=== PATIENT | male | born 1970 | race Caucasian/White ===

== ENCOUNTER 2020-01-20 10:42 | Emergency (ER) | payer BC, SELFPAY ==
[2020-01-20 10:48] VITALS: BP 160/95; PULSE 89; RESP 18; TEMP 36.9; O2SAT 95; BMI 30.9
--- NOTE | 2020-01-20 10:49 | ED_ITS ---
Entered by Louis Feldman, acting as scribe for Anay Lu MD HPI - Chest Pain General: Chief Complaint: Chest Pain Stated Complaint: Chest pain/SOB Time Seen by Provider: 01/20/20 10:51 History of Present Illness: HPI narrative: 49 yo male presents with chest pain and shortness of breath. Pt states that he went on a walk, he felt like he ran a mile and couldn't breath. Pt states that this chest pain and shortness of breath has been going off and on for a few weeks. Pt states that he was seen by his doctor in [place], had an EKG done and he is scheduled for a Pulmonary function test and an Echo. Pt states that he has COPD and he isn't sure if this is an exacerbation of his COPD or not. Pt states that he feels exhausted all the time. Pt states that he struggles to breath. Pt states that he has nebulizer at home but doesn't use it often. MD complaint: chest pain Associated symptoms: Reports dyspnea; Deny abdominal pain, fever(s), nausea or vomiting Review of Systems Const: Reports: fatigue; Denies: fever, chills, body aches or change in appetite Eyes: Denies: blurry vision or eye discomfort ENMT: Denies: throat pain or dental pain Card: Denies: chest pain Resp: Reports: shortness of breath and wheezing GI: Denies: abdominal pain, nausea, vomiting or diarrhea : Denies: painful urination Musc: Denies: neck pain or back pain Skin/Breast: Denies: rash Neuro: Denies: headache Psych: Denies: depression Wade/Lymph: Denies: easy bruising All/Imm: Denies: hives PFSH ED PFSH: Medical History (Updated 01/20/20 @ 13:38 by Anay Lu MD) COPD (chronic obstructive pulmonary disease) Social History Smoking and tobacco status: never smoked Physical Exam Const: COMMON NORMALS: no apparent distress, oriented x3 and healthy appearing HENMT: COMMON NORMALS: normocephalic and head/scalp atraumatic HEAD & SCALP: normocephalic and atraumatic Eye: COMMON NORMALS: PERRL and EOMs intact bilaterally PUPIL: Yes PERRL Neck/C-Spine: COMMON NORMALS: full ROM and supple Chest: COMMONS NORMALS: inspection of chest normal and palpation of chest normal Resp: EFFORT & INSPECTION: Yes labored AUSCULTATION: wheezes scattered wheezes Cardio: COMMON NORMALS: regular rate, regular rhythm and no murmurs RATE: regular rate RHYTHM: regular rhythm GI: COMMON NORMALS: normal to inspection, nondistended, normoactive bowel sounds, soft to palpation, non-tender and no masses PALPATION: Yes soft Extremity: COMMON NORMALS: normal to inspection and full ROM Neuro: COMMON NORMALS: oriented x3, moves all extremities and no focal motor deficits Psych: COMMON NORMALS: mental status grossly normal, thought process normal and cooperative THOUGHT PROCESS: normal thought process Skin: COMMON NORMALS: no rashes or lesions noted and no wounds GENERAL SKIN EXAM: no rashes or lesions noted Course Vital Signs: Vital signs: Vital Signs Temperature 98.5 F 01/20/20 10:48 Pulse Rate 81 01/20/20 13:51 Respiratory Rate 18 01/20/20 13:51 Blood Pressure 135/83 01/20/20 13:51 Pulse Oximetry 94 01/20/20 13:51 MDM - Chest Pain MDM Narrative: Medical decision making narrative: Patient presents here with dyspnea that is likely COPD. Patient likely has bronchitis as well. He has no signs of cardiac cause and d-dimer is negative. Patient is stable for discharge is return if worsening. He is to follow-up with primary care doctor in 3 to [address] him on albuterol along with antibiotic. Lab Data: Labs: Lab Results 01/20/20 01/20/20 01/20/20 Range/Units 11:05 11:05 11:05 WBC 9.0 (4.0-10.0) 10^3/ uL RBC 4.70 (4.1-5.3) 10^6/u L Hgb 13.8 (11.7-16.6) g/dL Hct 41.6 L (42.0-52.0) % MCV 88.5 (80-94) fL MCH 29.4 (28.0-34.0) pg MCHC 33.2 (30.0-36.0) g/dL RDW 12.4 (12.1-15.1) % Plt Count 195 (130-400) 10^3/c mm MPV 10.8 H (7.4-10.4) fL Neut % (Auto) 70.6 % Lymph % (Auto) 16.6 % [place] % (Auto) 9.7 % Eos % (Auto) 2.3 % Baso % (Auto) 0.4 % Neut # (Auto) 6.3 (1.8-7.7) 10^3/u L Lymph # (Auto) 1.5 (0.8-4.8) 10^3/u L [place] # (Auto) 0.9 (0.2-0.9) 10^3/u L Eos # (Auto) 0.2 (0.0-0.8) 10^3/u L Baso # (Auto) 0.0 (0.0-0.1) 10^3/u L Nucleated RBC % (a uto) 0 % Nucleated RBCs # 0.0 /100WBC D-Dimer <= 0.27 (0-0.59) ug/mIFE U Sodium 136 (136-145) mmol/L Potassium 4.0 (3.5-5.1) mmol/L Chloride 100 (98-107) mmol/L Carbon Dioxide 23 (22-29) mmol/L Anion Gap 17.0 (5-19) BUN 13 (6-20) mg/dL Creatinine 0.9 (0.7-1.2) mg/dL GFR Calculation 90.1 (90-130) mL/min Glucose 127 H (65-115) mg/dL Calcium 9.1 (8.5-10.5) mg/dL Total Bilirubin 0.4 (0.15-1.2) mg/dL AST 25 (0-40) U/L ALT 38 (0-41) U/L Alkaline Phosphata se 68 (40-130) IU/L Troponin T Baselin e (0-15) ng/mL Troponin T 120 Min [place] (0-15) ng/mL Delta Troponin T (0-10) ABS# NT-Pro-B Natriuret Pep 83 (0-125) pg/mL Total Protein 7.3 (6.6-8.7) g/dL Albumin 4.2 (3.5-5.2) g/dL Globulin 3.1 (1.3-4.6) g/dL TSH 1.13 (0.27-4.20) uIU/ mL 01/20/20 01/20/20 Range/Units 11:05 13:10 WBC (4.0-10.0) 10^3/ uL RBC (4.1-5.3) 10^6/u L Hgb (11.7-16.6) g/dL Hct (42.0-52.0) % MCV (80-94) fL MCH (28.0-34.0) pg MCHC (30.0-36.0) g/dL RDW (12.1-15.1) % Plt Count (130-400) 10^3/c mm MPV (7.4-10.4) fL Neut % (Auto) % Lymph % (Auto) % [place] % (Auto) % Eos % (Auto) % Baso % (Auto) % Neut # (Auto) (1.8-7.7) 10^3/u L Lymph # (Auto) (0.8-4.8) 10^3/u L [place] # (Auto) (0.2-0.9) 10^3/u L Eos # (Auto) (0.0-0.8) 10^3/u L Baso # (Auto) (0.0-0.1) 10^3/u L Nucleated RBC % (a uto) % Nucleated RBCs # /100WBC D-Dimer (0-0.59) ug/mIFE U Sodium (136-145) mmol/L Potassium (3.5-5.1) mmol/L Chloride (98-107) mmol/L Carbon Dioxide (22-29) mmol/L Anion Gap (5-19) BUN (6-20) mg/dL Creatinine (0.7-1.2) mg/dL GFR Calculation (90-130) mL/min Glucose (65-115) mg/dL Calcium (8.5-10.5) mg/dL Total Bilirubin (0.15-1.2) mg/dL AST (0-40) U/L ALT (0-41) U/L Alkaline Phosphata se (40-130) IU/L Troponin T Baselin e 6 (0-15) ng/mL Troponin T 120 Min [place] 6.00 (0-15) ng/mL Delta Troponin T 0 (0-10) ABS# NT-Pro-B Natriuret Pep (0-125) pg/mL Total Protein (6.6-8.7) g/dL Albumin (3.5-5.2) g/dL Globulin (1.3-4.6) g/dL TSH (0.27-4.20) uIU/ mL EKG Data^: EKG 1: Attestation: I personally reviewed and interpreted this EKG as follows: EKG interpretation date: 01/20/20 EKG interpretation time: 10:53 Interpretation: nsr hr [address] or t wave abnormalities qrs 96 qtc 396 EKG 2: Attestation: I personally reviewed and interpreted this EKG as follows: EKG interpretation date: 01/20/20 EKG interpretation time: 12:48 Interpretation: Normal sinus rhythm heart rate [address] or T wave abnormalities. Discharge Plan Discharge Patient Disposition: Home, Self-Care Clinical Impression: Bronchitis Chest pain Qualifiers: Chest pain type: unspecified Qualified Code(s): R07.9 - Chest pain, unspecified Condition: Stable Prescriptions: New Keflex 500 mg capsule 500 mg PO Q6H 7 Days Qty: 28 RF: 0 prednisone 50 mg tablet 50 mg PO DAILY Qty: 5 RF: 0 albuterol sulfate 90 mcg/actuation HFA aerosol inhaler 2 inh INHALATION Q6H PRN (Reason: shortness of breath) Qty: 8 RF: 0 No Action nitroglycerin 0.4 mg tablet, sublingual 0.4 mg sublingual Q5M PRN (Reason: Chest Pain) RF: 0 albuterol sulfate 90 mcg/actuation HFA aerosol inhaler 1 puff INHALATION Q6H PRN (Reason: Shortness Of Breath) RF: 0 Discharge Orders: Discharge Order (Routine); Ordered 01/20/20 Ordered By: Anay Lu Referrals: Gautam Flores MD [Family Provider] - 4-7 days Discharge Diet: Advance as tolerated Discharge Activity: Resume usual activity Patient Instructions: Acute Bronchitis (ED) Coding Level of Care Code ED Apprentice Stylist for Chg Fwd Exam Comprehensive The documentation recorded by the Gaston pelletier Kialy, accurately reflects the service I personally performed and the decisions made by Tabitha dobson Korby, MD
--- NOTE | 2020-01-20 10:57 | XR_ITS ---
WS: [id number] XR chest 1V portable [id number] REASON FOR EXAM: cp FINDINGS: Comparison January 12, 2010. The heart is not enlarged there is chronic changes in the mediastinal chest interface but no active p neumonias. No pneumonia, pleural effusion, pulmonary edema, or mass effect. The hilum and apices are normal. There is no evidence of pneumothorax. XR/XR chest 1V portable [id number] IMPRESSION: Negative chest for active pathology.
--- NOTE | 2020-01-20 10:57 | ECG_ITS ---
Measurements Intervals [place] Rate: 87 P: 58 IA: 138 QRS: 7 QRSD: 96 T: 36 QT: 352 QTc: 424 SINUS RHYTHM INCOMPLETE RIGHT BUNDLE BRANCH BLOCK [90+ ms QRS DURATION, TERMINAL R IN V1/V2, 40+ ms S IN I/aVL/V4/V5/V6] No previous ECG available for comparison Electronically Signed On 01-20-2020 20:00:04 STORM CHASER by Bety Lynch M.D. [email or web address]
[2020-01-20 11:11] LABS: Basophils % 0.4 %; Eosinophils # 0.2 10^3/uL (0.0-0.8); Eosinophils % 2.3 %; Hematocrit 41.6 % (42.0-52.0); Hemoglobin 13.8 g/dL (11.7-16.6); Lymphocytes # 1.5 10^3/uL (0.8-4.8); Lymphocytes % 16.6 %; Mean Corpuscular HGB Conc 33.2 g/dL (30.0-36.0); Mean Corpuscular Hemoglobin 29.4 pg (28.0-34.0); Mean Corpuscular Volume 88.5 fL (80-94); Mean Platelet Volume 10.8 fL (7.4-10.4); Monocytes # 0.9 10^3/uL (0.2-0.9); Monocytes % 9.7 %; Neutrophils # 6.3 10^3/uL (1.8-7.7); Neutrophils % 70.6 %; Nucleated Red Blood Cells % 0 %; Platelet Count 195 10^3/cmm (130-400); Red Cell Distribution Width 12.4 % (12.1-15.1)
[2020-01-20 11:21] VITALS: BP 137/91; PULSE 79; RESP 17; O2SAT 93
[2020-01-20 11:29] LABS: D Dimer <= 0.27 ug/mIFEU (0-0.59)
[2020-01-20 11:38] LABS: Troponin(5th) Baseline 6 ng/mL (0-15)
[2020-01-20 11:40] LABS: Slide Review Slide Review Perform
[2020-01-20 11:46] LABS: Alanine Aminotransferase 38 U/L (0-41); Albumin Level 4.2 g/dL (3.5-5.2); Alkaline Phosphatase 68 IU/L (40-130); Aspartate Amino Transferase 25 U/L (0-40); Blood Urea Nitrogen 13 mg/dL (6-20); Calcium 9.1 mg/dL (8.5-10.5); Carbon Dioxide 23 mmol/L (22-29); Chloride 100 mmol/L (98-107); Globulin 3.1 g/dL (1.3-4.6); Glomerular Filtration Rate 90.1 mL/min (90-130); Glucose 127 mg/dL (65-115); NT Pro B Type Natriuretic Pept 83 pg/mL (0-125); Sodium 136 mmol/L (136-145); Thyroid Stimulating Hormone 1.13 uIU/mL (0.27-4.20); Total Bilirubin 0.4 mg/dL (0.15-1.2); Total Protein 7.3 g/dL (6.6-8.7)
[2020-01-20] MEDS: ipratropium-albuterol 3 mL Neb INHALATION (11:59)
[2020-01-20 13:29] LABS: Troponin 5 2HR Delta 0 ABS# (0-10)
[2020-01-20 13:51] VITALS: BP 135/83; PULSE 81; RESP 18; O2SAT 94
--- NOTE | 2020-01-20 16:57 | ECG_ITS ---
Measurements Intervals [place] Rate: 83 P: 49 GA: 136 QRS: 6 QRSD: 100 T: 39 QT: 373 QTc: 438 SINUS RHYTHM WITH SINUS ARRHYTHMIA No previous ECG available for comparison Electronically Signed On 01-20-2020 20:05:36 SHIPPER by Bety Lnych M.D. [email or web address]
== END 2020-01-20 14:27 | disposition home or self-care (01) ==
PROVIDERS: Emergency Provider Emergency Medicine; Family Provider Family Medicine
DX: J44.9 Chronic obstructive pulmonary disease, unspecified (principal); R07.9 Chest pain, unspecified
CPT/HCPCS: 36415; 71045; 80053; 83880; 84443; 84484; 85025; 85378; 93005; 96374; 96375; 99281; 99284; J2930; J7611